=== PATIENT | male | born 1965 | race Caucasian/White ===

== ENCOUNTER → 2019-12-10 16:26 | Outpatient (CLI) | payer OTHER, SELFPAY ==
--- NOTE | 2019-12-10 | XR_ITS ---
PROCEDURE: XR ELBOW LT MIN 3V CLINICAL INDICATION: LEFT ELBOW PAIN Pain COMPARISON: No exams were available for comparison FINDINGS: No fracture or dislocation. No lytic or blastic change. There is normal mineralization. There are several small calcific densities along the anterior aspect of the proximal forearm within the soft tissues. These could be due to phleboliths. There is minimal hypertrophic change of the olecranon and coronoid process. Small enthesophyte is present at the olecranon. Small metallic density is noted along the anterior and mid aspect of the forearm. Other findings:None. IMPRESSION: Mild osteoarthritic change with other nonacute findings as described above. Dictated by: Aron White MD 12/10/2019 20:01 Aron Whiet MD in [facility] 12/10/2019 20:01
== END ==
PROVIDERS: PCP Family Medicine; Visit Provider Family Medicine
DX: M25.522 Pain in left elbow (principal)
CPT/HCPCS: 73080